=== PATIENT | male | born 1980 ===

== ENCOUNTER 2017-08-18 14:18 | Emergency (ER) | payer OTHER, MEDICAID ==
[2017-08-18 14:33] VITALS: BMI 311.4
[2017-08-18 14:35] VITALS: BP 121/75; PULSE 86; RESP 18; TEMP 98.7; O2SAT 97
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
== END 2017-08-18 16:02 | disposition home or self-care (01) ==
LOC: C.ER 14:18
DX: S60.221A Contusion of right hand, initial encounter (principal); S20.211A Contusion of right front wall of thorax, initial encounter; S70.01XA Contusion of right hip, initial encounter; V43.42XA Person boarding or alighting a car injured in collision with other type car, initial encounter

== ENCOUNTER 2018-05-30 20:08 | Emergency (ER) | payer MEDICAID, OTHER ==
[2018-05-30 20:09] VITALS: BMI 311.4
[2018-05-30 20:33] VITALS: TEMP 98.4; O2SAT 100
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
[2018-05-30] MEDS ORDERED: Sodium Chloride 0.9% 1,000 ML IV SCH (21:00)
[2018-05-30 21:01] LABS: BASO % 0.7 % (0.0-2.0); EOS # 0.1 K/uL (0.0-0.7); EOS % 2.5 % (0.0-4.0); HEMOGLOBIN 15.3 g/dL (12.0-18.0); LYMPH # 2.4 K/uL (1.0-4.3); LYMPH % 41.1 % (20.0-40.0); MEAN CELL VOLUME 82.4 fL (80.0-94.0); MEAN CORPUSCULAR HEMOGLOBIN 26.8 pg (27.0-31.0); MEAN CORPUSCULAR HGB CONC 32.5 g/dL (33.0-37.0); MEAN PLATELET VOLUME 8.1 fL (7.2-11.7); MONO # 0.5 K/uL (0.0-0.8); MONO % 7.9 % (0.0-10.0); NEUT # 2.8 K/uL (1.8-7.0); NEUT % 47.8 % (50.0-75.0); NRBC % 0.2 % (0.0-2.0); RBC 5.72 Mil/uL (4.40-5.90); RED CELL DISTRIBUTION WIDTH 13.5 % (11.5-14.5); WHITE BLOOD COUNT 5.8 K/uL (4.8-10.8)
[2018-05-30] MEDS ORDERED: Sodium Chloride 0.9% 1,000 ML ONE (21:02)
[2018-05-30 21:04] VITALS: BP 119/76; PULSE 82; RESP 17
[2018-05-30 21:16] LABS: ALB/GLOB RATIO 1.7 (1.0-2.1); ALBUMIN 4.8 g/dL (3.5-5.0); ALT/SGPT 37 U/L (21-72); AST/SGOT 33 U/L (17-59); BLOOD UREA NITROGEN 18 mg/dL (9-20); CALCIUM 8.5 mg/dl (8.6-10.4); GFR NON-AFRICAN AMERICAN > 60
--- NOTE | 2018-05-31 08:26 | RAD ---
Chest x-ray two views HISTORY: Chest pain. COMPARISON: None available. FINDINGS: No focal infiltrate or effusion. Heart size within normal limits. Small nodular density at the left lung base may represent vessel on end. Impression: No focal infiltrate or effusion.
--- NOTE | 2018-06-01 20:05 | CARD ---
APPROVED REPORT Date of service: 05/30/2018 EKG Measurement Heart [id number] <Conclusion> Normal sinus rhythm Normal ECG
== END 2018-05-30 23:21 | disposition left against medical advice (07) ==
LOC: C.ER 20:08
DX: R07.9 Chest pain, unspecified (principal)
CPT/HCPCS: 71046; 80053; 82948; 83735; 84484; 85025; 93005; 99285; J7030